=== PATIENT | male | born 1965 | race Caucasian/White ===

== ENCOUNTER 2024-01-15 08:26 | Day surgery (SDC) | payer MEDICAID ==
[~2024-01-15] VITALS: Ht 167.6 cm; Wt 77.1 kg
[2024-01-15] MEDS ORDERED: MEPERIDINE 100 MG INJ. 100 MG/ML VIAL ONE (08:37)
[2024-01-15] MEDS ORDERED: BENZOCAINE 20% 0.5mL UD SPRAY MM ONE (08:37)
[2024-01-15] MEDS ORDERED: MIDAZOLAM HCL 5 MG/5 ML VIAL ONE (08:38)
[2024-01-15 13:00] VITALS: O2SAT 97
[2024-01-15 15:34] VITALS: BP_SYST 114; PULSE 68; RESP 14; TEMP 96.7
== END 2024-01-15 11:39 | disposition home or self-care (01) ==
LOC: SMU 08:26 → SDS 08:26
PROVIDERS: ATTEND Internal Medicine
DX: Z12.11 Encounter for screening for malignant neoplasm of colon (principal); K29.30 Chronic superficial gastritis without bleeding; K21.00 Gastro-esophageal reflux disease with esophagitis, without bleeding; K63.5 Polyp of colon; R10.9 Unspecified abdominal pain; K57.30 Diverticulosis of large intestine without perforation or abscess without bleeding; K64.8 Other hemorrhoids; I25.10 Atherosclerotic heart disease of native coronary artery without angina pectoris; E78.5 Hyperlipidemia, unspecified; I25.2 Old myocardial infarction; M10.9 Gout, unspecified; Z87.891 Personal history of nicotine dependence; Z88.6 Allergy status to analgesic agent; Z95.1 Presence of aortocoronary bypass graft; Z95.818 Presence of other cardiac implants and grafts; Z79.899 Other long term (current) drug therapy
CPT/HCPCS: 45385; 43239; 88305; 88312; 88313; 99153; 99152; G0378; J2250; J2175; 45380